=== PATIENT | male | born 1965 | race African-American/Black ===

== ENCOUNTER 2018-08-23 04:18 | Emergency (ER) | payer OTHER ==
[~2018-08-23] VITALS: Ht 162.6 cm; Wt 104.3 kg
[~2018-08-23 04:18] MED LIST: AMLODIPINE BESYL5 MG PO; LISINOPRIL20 MG; TESSALON PERLE100 MG PO
[2018-08-23] MEDS ORDERED: NORCO 5-325 TA1 EACH PO (04:38)
[2018-08-23 04:48] VITALS: BP 162/107
== END 2018-08-23 04:50 | disposition home or self-care (01) ==
LOC: ER 04:18
DX: M54.6 Pain in thoracic spine (principal); I10 Essential (primary) hypertension

== ENCOUNTER 2020-01-29 12:32 | Inpatient (IN) | payer OTHER ==
[~2020-01-29] VITALS: Ht 162.6 cm; Wt 93.8 kg
[~2020-01-29 12:32] MED LIST changes: +NORCO 5-325 TA1 EACH PO
[2020-01-29 12:40] VITALS: BP 158/106
[2020-01-29] MEDS ORDERED: LEXAPRO 10 MG T10 M1 PO (12:52)
[2020-01-29 13:21] LABS: ABSOLUTE NEUTROPHILS 2.8 thou/uL (1.4-8.2); BASOPHILS 0.8 % (0.0-2.0); EOSINOPHILS 1.9 % (0.0-3.0); HEMATOCRIT 45.6 % (42.0-52.0); HEMOGLOBIN 15.6 gm/dL (14.0-18.0); LYMPHOCYTES 30.6 % (24.0-44.0); MCH 31.7 pg (26.0-34.0); MCHC 34.1 g/dL (28.0-37.0); MCV 92.9 fL (80.0-100.0); PLATELET COUNT 230 thou/uL (150-400); POLYS 55.7 % (36.0-66.0); RBC 4.91 mil/uL (4.50-6.00); RDW 14.4 % (10.5-14.5); WBC 5.1 thou/uL (4.0-11.0)
[2020-01-29 13:29] LABS: ANION GAP 5 mmol/L (7-16); BUN 12 mg/dL (7-18); CALCIUM 7.7 mg/dL (8.5-10.1); CHLORIDE 107 mmol/L (98-107); CO2 32 mmol/L (21-32); CREATININE 1.3 mg/dL (0.7-1.3); GLUCOSE 82 mg/dL (74-106); POTASSIUM 3.5 mmol/L (3.5-5.1); SODIUM 144 mmol/L (136-145)
[2020-01-29 13:36] LABS: ALBUMIN 3.2 g/dL (3.4-5.0); SALICYLATE < 2.8 mg/dL (2.8-20.0); SGOT 28 U/L (15-37); SGPT 28 U/L (30-65); TOTAL BILIRUBIN 0.3 mg/dL (<0.1-1.0); TOTAL PROTEIN 6.7 g/dL (6.4-8.2)
[2020-01-29 13:49] LABS: URINE BILIRUBIN NEGATIVE (Negative); URINE BLOOD NEGATIVE (Negative); URINE CLARITY CLEAR; URINE COLOR YELLOW; URINE GLUCOSE-RANDOM* NEGATIVE (Negative); URINE KETONES TRACE (Negative); URINE LEUKOCYTES-REFLEX NEGATIVE (Negative); URINE NITRITE-REFLEX NEGATIVE (Negative); URINE PROTEIN (DIPSTICK) TRACE (Negative)
[2020-01-29 14:03] LABS: AMP/METHAMP Negative (Negative); BARBITURATES Negative (Negative); BENZODIAZEPINES POSITIVE (Negative); COCAINE POSITIVE (Negative); METHADONE Negative (Negative); OPIATES Negative (Negative); PCP Negative (Negative)
--- NOTE | 2020-01-29 14:51 | NUR ---
FIANCE - CRYSTAL : [phone]
[2020-01-29 15:08] VITALS: BP 150/103
[2020-01-29 15:35] VITALS: BP 158/102
[2020-01-29 15:51] VITALS: BP 158/102
--- NOTE | 2020-01-29 16:50 | NUR ---
1600 NEW ADMIT FROM ER DUE TO OVERDOSING ON BENZODIAZIPINES AND COCAINE. PATIENT TEARFUL WHILE TALKING WITH ME ABOUT WHY HE TRIED TO KILL HIMSELF. PATIENT STATES HE HAS LOST HIS STEP SON 7 MONTHS AGO, GRANDAUGHTER SEVERAL MONTHS AGO; OTHER FAMILY MEMBERS IN THE PAST YEAR. PATIENT STAES WHEN HE TOOK THE PILLS HIS DAUGHTER TOLD HIM THAT SHE CANNOT LOSE HIM AFTER LOSING HER BROTHER. PATIENT STATES HIS SONS MOTHER STARTED DATING RIGHT AFTER STEP SON . HE FELT THAT THAT WAS WRONG AND HE FELT HE DID NOT HAVE SUPPORT WHILE GREIVING. 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 HIS LAB WORK WAS POSITIVE FOE BENZO'S AND COCAINE. PATIENT IS VERY RECEPTIVE FOR BEING HERE. HE WANTS HELP WITH DEALING WITH ANXIETY AND DEPRESSION, COOPERATIVE VERY PLEASANT.
[2020-01-29 20:35] VITALS: BP 154/99
--- NOTE | 2020-01-30 05:34 | NUR ---
Assumed care of pt @ 1900. Pt calm et cooperative with pleasant demeanor. Took medications whole without difficulty. Ambulates the halls ad scot with steady gait. Physician plced pt on CIWA protocol so assessment made X1 hr for 2X et then every 4 hours after. Pt has not scored on CIWA assessment et pt denies any symptoms at this time. VSWNL. Health assessment with no abnormalities noted at present time. Denies SI/ HI. Currently resting in bed with eyes closed. Will continue to monitor per protocol.
[2020-01-30 07:15] VITALS: BP 155/98
--- NOTE | 2020-01-30 08:48 | EKG ---
[facility] [place] [address] ELECTROCARDIOGRAM REPORT Name: KAREN [facility]IMI [facility] [id number] Admission: 01/29/20 Attend Phys: Darrick Medina DO Discharge: Date of : 63 Report #: [id number] THIS REPORT FOR: cc: [facility] - Clinic physician unknown [facility] - Clinic physician unknown Jeremy Anthony MD [facility] THIS REPORT FOR: //name// [facility] ED Test Date: 2020-01-29 Test Time: 13:04:07 Pat Name: KAREN KARIMI Department: Room: [facility] Gender: M 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
--- NOTE | 2020-01-30 16:32 | NUR ---
NILSA spoke with Pt's girfriend, Carmen Dhaliwal, at Pt's request. Ms. Dhaliwal inquired about Pt being discharged. NILSA informed that Pt was not ready for discharge at this point due to suicide attempt and current heightened anxiety Pt is displaying. NILSA also informed that if Pt requested to leave the hospital would request a 96 hour hold due to seriousness of issues that brought Pt in. NILSA explained the inpt program to Ms. Dhaliwal. Ms. Dhaliwal was concerned about Pt isolating in his room and Pt being scared to be on the unit. NILSA assured Ms. Dhaliwal of Pt's safety and encouraged her to encourage the Pt to come out of his room and participate in the group psycho therapy and rec therapy groups. Ms. Dhaliwal also stated that Pt has always been an "on the move" and a "hard time sitting steal" type of person and asked about medication. NILSA informed that Pt has seen psychiatry and will continue to see the doctor through out his stay here. Also that any medication started will be discussed with the Pt. Ms. Dhaliwal had no further question or concerns.
[2020-01-30 16:54] VITALS: BP 155/98
--- NOTE | 2020-01-30 17:11 | NUR ---
ASSUMED CARE AT 0700 THIS MORNING. THIS PT. IS ON CIRWA Q 4 TODAY. NO S/S NOTED. HE DENIES SWEATS, SHAKINESS, LIGHT DIFFERENTIAL, OR ANYTHING. STATED HE WILL D/C THIS. PT. HAS BEEN IN HIS ROOM MUCH OF THE DAY, WHEN NOT EATING MEALS, LYING IN BED. HE HAS BEEN PLEASANT WITH THIS RN. HE TOOK HIS MEDICATIONS WITHOUT PROBLEMS. DENIES SI/HI, AVH
[2020-01-30 19:25] VITALS: BP 149/88
--- NOTE | 2020-01-30 21:00 | NUR ---
Assumed care of patient at change of shift. He was laying in bed when his assessment was done. He was encouraged to increase his activity but he states that he is scared of some of the other patients and just wants to be in his room and left alone by other patients. He states that he is very upset at the fact that another patient wanders into his room and turns on the light. He states that this scares him very much. Emotional support was given and he was thankful for it. We talked at length about his using of drugs and his attempted OD. He denies SI/HI/AH/VH. He states that he knows that it was stupid and that he only does drugs "once in a while". He is alert and oriented x 4 with flat affect. He states that he will be doing outpatient therapy at [facility] 5 days a week after he discharges to home or [place]. His physical assessment is WNL per nursing assessment. He took his meds with water. No choking or coughing was noted after swallowing.
[2020-01-31 04:26] VITALS: BP 149/88
[2020-01-31 07:38] VITALS: BP 163/96
[2020-01-31 11:00] VITALS: BP 163/96
[2020-01-31 11:26] VITALS: BP 163/96
--- NOTE | 2020-01-31 11:31 | NUR ---
ASSUMED CARE AT 0700 THIS MORNING. CONTINUES TO BE DEPRESSED, SAD LOOKING, AND TEARFUL AT TIMES. HE ONLY TALKS TO STAFF ON APPROACH ONLY. ATE ON THE UNIT, TOOK HIS MEDICATIONS WITHOUT PROBLEMS NOTED. BETWEEN MEALS HE LAYS IN HIS BED, NOT COMMUNICATING WITH ANYBODY.
[2020-01-31 19:30] VITALS: BP 154/109
--- NOTE | 2020-01-31 22:22 | NUR ---
Assumed care of patient at change of shift. He was ambulating in hallways with a slow and steady gait and returned to his room for assessment. He is alert and oriented x 4. He can state details of his discharge planning. His affect is flat. He was pleasant and cooperative and no behaviors are noted. He emphatically denies SI/HI/AH/VH. He spoke of the deaths of his son and step-son without becoming tearful and acknowledges that grief counseling would be beneficial. He denies pain and no signs or symptoms of pain or distress are noted.
[2020-02-01 00:07] VITALS: BP 154/109
--- NOTE | 2020-02-01 03:28 | NUR ---
Pt.'s blood pressure was retaken with manual cuff at change of shift. BP with manual 182/100. Pt. has been up x 3 to bathroom to void without difficulty.
--- NOTE | 2020-02-01 05:39 | NUR ---
Pt. was up ad scot to bathroom x 3 last night. Pt. would quickly return to bed and cover back up. Gait steady. Pt. reminded not to be hasty at night while getting up to go to the bathroom. He stated that he understood.
[2020-02-01 07:41] VITALS: BP 156/95
--- NOTE | 2020-02-01 10:53 | NUR ---
0700 ASSUMED CARE OF PATIENT, PATIENT SITTING IN DAYROOM AT THAT TIME. PATIENT AMB TO ROOM AND SITS IN ROOM. 0800 PATIENT BACK TO DAYROOM FOR BREAKFAST. MEDICATION TAKEN WHOLE WITHOUT DIFFICULTY. DENIES SI/HI, NO C/O PAIN, PATIENT STATES GOAL FOR TODAY IS TO FOCUS. NO CONCERNS VOICED. DENIES NEEDS.
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
[2020-02-01 19:39] VITALS: BP 170/99
[2020-02-01 21:15] VITALS: BP 154/88
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
--- NOTE | 2020-02-02 06:08 | NUR ---
PATIENT AWOKE AND CAME TO DINING ROOM AROUND 0500. HE ASKED NURSE IF HE COULD GET SOMETHING FOR RIGHT SIDED NECK PAIN. TYLENOL 650 MG WAS GIVEN TO HIM. THIS NURSE USED THERAPEUTIC MASSAGE TO AREA. RIGHT NECK WAS TIGHT AND DID LOOSEN A LITTLE WITH MASSAGE. CHECKED PATIENT'S BP. IT WAS 158/107 WITH MACHINE AND 158/100 MANUALLY. PATIENT DENIES HEADACHE. THIS NURSE CALLED RENAE SAXENA PIPER HELPER AND ASKED IF I COULD GIVE A BP MED EARLY. SHE ORDERED TO GO AHEAD AND GIVE THE AMLODIPINE (NORVASC) 10MG NOW AND WAIT TILL 0900 TO GIVE LISINOPRIL. PT WENT BACK TO BED AND IS SLEEPING NOW.
--- NOTE | 2020-02-02 06:48 | NUR ---
PATIENT IS UP IN DINING ROOM DRINKING COFFEE. HE IS THINKING HE IS GOING HOME TODAY BECAUSE DR BOLTON TOLD HIM HE WOULD BE. I TOLD HIM I SAW DR'S NOTE STATING THAT BUT RENAL MEDICINE SPECIALIST HAS PUT DOWN THAT HE IS TO GO HOME 02/02. RECHECKED BP AND IS 158/96. SYSTOLIC HAS COME DOWN A LITTLE BIT. HE WILL GET LISINOPRIL AT 0900.
[2020-02-02 07:29] VITALS: BP 154/94
[2020-02-02 09:00] VITALS: BP 154/94
--- NOTE | 2020-02-02 09:43 | NUR ---
NILSA and Dr. Leahy met with Pt concerning discharge plan. NILSA completed a safety plan with the Pt and called [facility] to start intake for intensive outpatient program. SW encouraged Pt to talk to his job about the outpt services and the need for time off to attend the program. Pt was in agreement with the plan. Pt requested a letter concerning the dates he was inpt to present to his job. Pt was able to call his family to transport home.
--- NOTE | 2020-02-02 12:07 | NUR ---
0700 ASSUMED CARE OF PATIENT. 0730 PATIENT OUT IN DAYROOM WATCHING TV QUIETLY. 0800 PATIENT EATING BREAKFAST, DENIES NEEDS AT THAT TIME. MEDICATION TAKEN WHOLE WITHOUT DIFFICULTY. 0900 PTIENT DENIES PAIN, DENIES SI/HI, LUNG SOUNDS CLEAR, BS ACTIVE. PATIENTS GOAL FOR THE DAY IS TO GO HOME WITH NO CONCERNS. 1020 DC INSTRUCTIONS GIVEN PATIENT VOICED UNDERSTANDING. BELONGING RETRIEVED FROM SECURITY WHICH INCLUDE DRIVERS LICENSE AND ISURANCE CARD. 1138 PATIENT DC'D, PATIENT AMBULATED TO VEHICLE ACCOMPNAIED BY STAFF WITH BELONGING IN HAND.
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
== END 2020-02-02 11:38 | disposition home or self-care (01) | DRG 885 ==
LOC: ER 12:32 → SBH 14:52 → EROBS 14:52 → SBH 15:08 → ER 15:08 → SBH 15:15
PROVIDERS: Physician Assistant; ADMIT Psychiatry & Neurology Psychiatry
DX: F32.3 Major depressive disorder, single episode, severe with psychotic features (principal); R45.851 Suicidal ideations; I10 Essential (primary) hypertension; F32.9 Major depressive disorder, single episode, unspecified; F14.90 Cocaine use, unspecified, uncomplicated; F68.8 Other specified disorders of adult personality and behavior; E78.5 Hyperlipidemia, unspecified; R63.4 Abnormal weight loss; E66.9 Obesity, unspecified; F10.129 Alcohol abuse with intoxication, unspecified; R45.84 Anhedonia; Z72.89 Other problems related to lifestyle; Z79.891 Long term (current) use of opiate analgesic; Z68.35 Body mass index [BMI] 35.0-35.9, adult; Z79.899 Other long term (current) drug therapy
CPT/HCPCS: 10880

== ENCOUNTER 2020-05-21 05:57 | Inpatient (IN) | payer OTHER ==
[~2020-05-21] VITALS: Ht 165.1 cm; Wt 90.3 kg
[~2020-05-21 05:57] MED LIST changes: +LEXAPRO 10 MG T10 M1 PO
[2020-05-21 06:12] VITALS: BP 123/87
[2020-05-21] MEDS ORDERED: LOVASTATIN 20 M20 MG PO (06:19)
[2020-05-21 07:12] LABS: ABSOLUTE NEUTROPHILS 5.1 thou/uL (1.4-8.2); EOSINOPHILS 0.6 % (0.0-3.0); HEMATOCRIT 47.1 % (42.0-52.0); HEMOGLOBIN 15.9 gm/dL (14.0-18.0); LYMPHOCYTES 16.2 % (24.0-44.0); MCH 31.7 pg (26.0-34.0); MCHC 33.8 g/dL (28.0-37.0); MCV 93.7 fL (80.0-100.0); MONOCYTES 11.1 % (1.0-8.0); PLATELET COUNT 197 thou/uL (150-400); POLYS 71.1 % (36.0-66.0); RBC 5.02 mil/uL (4.50-6.00); RDW 14.3 % (10.5-14.5); WBC 7.2 thou/uL (4.0-11.0)
--- NOTE | 2020-05-21 07:27 | EKG ---
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[facility] 1965 Requested By: Ruby Larios Order Number: [id number] MD: Livan Dubon Measurements Intervals [place] Rate: 100 P: 68 VA: 169 QRS: 79 QRSD: 89 T: 36 QT: 346 QTc: 447 Interpretive Statements Sinus tachycardia Probable left atrial enlargement Poor R-wave progression V1-3 Baseline wander in lead(s) V2 Compared to ECG 01/29/2020 13:04:07 Sinus rhythm no longer present Electronically Signed On 05-21-2020 7:27:34 CDT by Livan Dubon [email or web address] <ELECTRONICALLY SIGNED> By: Livna Dubon MD, FAC 05/21/20 0727 2 2 Livan Dubon MD, [facility] /EPI
[2020-05-21 07:28] LABS: ANION GAP 11 mmol/L (7-16); BUN 61 mg/dL (7-18); CALCIUM 7.8 mg/dL (8.5-10.1); CHLORIDE 96 mmol/L (98-107); CO2 31 mmol/L (21-32); CREATININE 6.3 mg/dL (0.7-1.3); GLUCOSE 95 mg/dL (74-106); SODIUM 138 mmol/L (136-145)
[2020-05-21 07:38] LABS: ALBUMIN 2.9 g/dL (3.4-5.0); DIRECT BILIRUBIN 0.2 mg/dL (<0.1-0.2); LIPASE 442 U/L (73-393); SGOT 16 U/L (15-37); SGPT 18 U/L (30-65); TOTAL BILIRUBIN 0.6 mg/dL (0.2-1.0); TOTAL PROTEIN 6.4 g/dL (6.4-8.2); TROPONIN-I <0.06 ng/mL (<0.06)
[2020-05-21 07:58] LABS: URINE BILIRUBIN NEGATIVE (Negative); URINE BLOOD TRACE (Negative); URINE CLARITY CLEAR; URINE COLOR YELLOW; URINE GLUCOSE-RANDOM* NEGATIVE (Negative); URINE KETONES NEGATIVE (Negative); URINE LEUKOCYTES-REFLEX NEGATIVE (Negative); URINE NITRITE-REFLEX NEGATIVE (Negative); URINE PROTEIN (DIPSTICK) NEGATIVE (Negative); URINE SPECIFIC GRAVITY 1.015 (1.005-1.035); URINE UROBILINOGEN 0.2 E.U./dl (0.2-1.0)
[2020-05-21 08:17] LABS: CALCIUM 7.5 mg/dL (8.5-10.1); POTASSIUM 3.1 mmol/L (3.5-5.1)
[2020-05-21 17:12] VITALS: BP 115/73
[2020-05-21 17:19] VITALS: BP 112/79
[2020-05-21 19:09] VITALS: BP 126/88
--- NOTE | 2020-05-21 19:37 | NUR ---
NEW ADMIT FOR ABD PAIN, HIATAL HERNA, PANCREATITIS, ACUTE RENAL FAILURE. A./OX4, DENINES CHEST PAIN, DENIES SOB. NRS ON TELE. ORDERS ACKNOWLEDGE, ADMISSION AND CONSENTS COMPLETED. TOLERATING CLD. POTENTIAL EGD IN AM. UP AB XENIA IN ROOM. ORIANTED TO ROOM AND CALL SYSTEM. PERSONAL ITEMS IN REACH.
--- NOTE | 2020-05-22 04:08 | NUR ---
ASSUMED PT CARE AT SHIFT CHANGE. PT IS A&OX4. PT IS UP AD XENIA. PT IS ON TELE. PT HAS A LEFT AC FLUIDS RUNNING AT 125ML/HR. PT IS ABLE TO VOICE NEEDS. HE IS CONCERNED ABOUT HIS DIET. PT COMPLAINS OF A PAIN AT 7 ABDOMINALY. FENTANYL WAS ADMINISTERED.PT HAS BEEN ASLEEP OFF AND ON IN THE ROOM. WILL CONTINUE TO MONITOR.
[2020-05-22 05:32] LABS: HEMATOCRIT 43.2 % (42.0-52.0); HEMOGLOBIN 14.4 gm/dL (14.0-18.0); MCH 31.5 pg (26.0-34.0); MCHC 33.3 g/dL (28.0-37.0); MCV 94.6 fL (80.0-100.0); RBC 4.57 mil/uL (4.50-6.00); RDW 14.2 % (10.5-14.5); WBC 6.4 thou/uL (4.0-11.0)
[2020-05-22 05:37] LABS: POTASSIUM 3.8 mmol/L (3.5-5.1)
[2020-05-22 05:47] LABS: CREATININE 4.3 mg/dL (0.7-1.3)
[2020-05-22 07:53] VITALS: BP 147/95
--- NOTE | 2020-05-22 12:39 | NUR ---
Received awake on bed. Due medications given as prescribed, able to swallow meds q/o difficulty. On room air. A+Ox4. On telemetry; SR, no complain of chest pain, crushing sensation and heaviness. On clear liquid diet, tolerating well; no nausea, no vomiting and no abdominal pain noted. On blood sugar monitoring, taken and recorded accordingly. Continent of bowel and bladder, able to go to the toilet independently. With NS at 125cc/hr, infusing well at L AC. Up ad scot. No complain of pain made during assessment. To continue monitoring patient. Pt seen and examined by Dr Robertson, planning to do surgery on pt since one of his scheduled cases got cancelled, pt informed- he said he had 1 cup of broth and 2 cups of juice- Dr Robertson informed, will not do surgery today- may have regular diet- orders made, pt informed. Visited by relative today. Pt able to sit out on chair and walk around the room.
[2020-05-22 15:41] VITALS: BP 157/98
[2020-05-22 21:57] VITALS: BP 136/86
[2020-05-23 06:22] LABS: ALBUMIN 2.5 g/dL (3.4-5.0); PHOSPHORUS 1.8 mg/dL (2.5-4.9); POTASSIUM 3.5 mmol/L (3.5-5.1)
[2020-05-23 06:24] LABS: CREATININE 2.6 mg/dL (0.7-1.3)
[2020-05-23 07:20] VITALS: BP 155/109
[2020-05-23 09:50] VITALS: BP 156/110
[2020-05-23 13:24] VITALS: BP 147/97
--- NOTE | 2020-05-23 16:24 | NUR ---
PT A&OX4, VSS, GENERALIZED PAIN THIS A.M. PATIENT STATES HE WANTS TO GO HOME TODAY. DOCTOR IN TO SPEAK WITH PATIENT. PATIENTS KIDNEY FUNCTION BEING MONITORED WILL STAY ANOTHER NIGHT. PATIENT DENEIS N/V/D. IV FLUIDS CONTINUE TO RUN. NO SIGNS OF DISTRESS. WILL CONTINUE TO MONITOR.
[2020-05-23 16:26] VITALS: BP 152/76
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
== END 2020-05-23 22:55 | disposition left against medical advice (07) | DRG 391 ==
LOC: ER 05:57 → EROBS 10:01 → 4W 10:01
PROVIDERS: Emergency Medicine; Internal Medicine Nephrology; ADMIT Internal Medicine; ATTEND Internal Medicine
DX: K29.70 Gastritis, unspecified, without bleeding (principal); K85.90 Acute pancreatitis without necrosis or infection, unspecified; N17.9 Acute kidney failure, unspecified; F41.9 Anxiety disorder, unspecified; F32.9 Major depressive disorder, single episode, unspecified; I10 Essential (primary) hypertension; E87.6 Hypokalemia; E78.5 Hyperlipidemia, unspecified; K21.9 Gastro-esophageal reflux disease without esophagitis; K43.2 Incisional hernia without obstruction or gangrene; E86.0 Dehydration; Z20.828 Contact with and (suspected) exposure to other viral communicable diseases; Z79.899 Other long term (current) drug therapy
CPT/HCPCS: 10040; 10045

== ENCOUNTER 2021-03-18 11:07 | Inpatient (IN) | payer OTHER ==
[~2021-03-18] VITALS: Ht 165.1 cm; Wt 99.2 kg
--- NOTE | ~2021-03-18 | P ---
[facility] [place] [address] PROCEDURE REPORT Name: KAREN KARIMI Room #: 360-[facility].#: [id number] Admission: 03/18/21 Attend Phys: Gennaro James MD Discharge: 03/19/21 Date of : 63 Report #: [id number] THIS REPORT FOR: cc: [facility] - Clinic physician unknown [facility] - Clinic physician unknown Konrad Flores MD ~ cc: Gennaro James MD DATE OF SERVICE: 03/19/2021 PROCEDURE PERFORMED: Colonoscopy. HISTORY OF PRESENT ILLNESS: The patient is a 55-year-old male with recent bright red blood per rectum, started on Sunday last week. Denies any abdominal pain. Last colonoscopy was approximately 3-4 years ago, reportedly negative. CT scan of the abdomen and pelvis showing a possible mild rectal wall thickening, which may be seen with proctitis, although lack of distention is possible; mild diverticulosis without evidence of diverticulitis. The patient's hemoglobin is stable at 15.4 on admission, 14.5 today. DESCRIPTION OF PROCEDURE: The risks and benefits of the procedure were explained to the patient. Those risks including, but not limited to bleeding, perforation and the risk of sedation. He understood these risks and gave informed consent. Sedation was given using propofol per anesthesia. Next, a digital rectal exam was initially performed, which was normal. Next, using a standard Olympus colonoscope, the scope was placed in the patient's anus and advanced under direct vision to the cecum. The overall prep was good. The cecum and ileocecal valve were normal in appearance. Terminal ileum was intubated and normal in appearance. Ascending, transverse and descending colon were normal. A few small scattered diverticula were noted in the sigmoid colon. No evidence of inflammation. No evidence of bleeding. The rectal mucosa was normal. On retroflexion, small nonbleeding internal hemorrhoids were noted. Close examination of the anal canal showed small internal hemorrhoids. No evidence of anal fissure. No evidence of bleeding. There was no evidence of colitis throughout the exam today. The scope was then withdrawn and the procedure terminated. The patient tolerated the procedure well. IMPRESSION: 1. Sigmoid diverticulosis. 2. Internal hemorrhoids. 3. Otherwise, normal colonoscopy. RECOMMENDATIONS: Suspect recent bleeding was secondary to internal hemorrhoids. No stigmata or evidence of bleeding at this time, although the patient could have had a diverticular bleed with what he describes more likely scenario would be from hemorrhoids. We would recommend observing at this point using [address] [address] PROCEDURE REPORT Name: KARIMIKARENSHANTELLE IZAGUIRRE Room #: 360-P [facility] IN M.R.#: [id number] Admission: 03/18/21 Attend Phys: Gennaro James MD Discharge: 03/19/21 Date of : 63 Report #: [id number] on a p.r.n. basis. Thank you for allowing me to participate in his care. By: [id number] Konrad Flores MD /bharath
[~2021-03-18 11:07] MED LIST changes: -LISINOPRIL20 MG; +LISINOPRIL20 MG PO; +LOVASTATIN 20 M20 MG PO
[2021-03-18 11:10] VITALS: BP 116/76
[2021-03-18] MEDS ORDERED: LOVASTATIN 20 M20 MG PO (11:12)
[2021-03-18] MEDS ORDERED: TRAZODONE HCL100 MG PO (11:13)
[2021-03-18 11:49] LABS: ABSOLUTE NEUTROPHILS 4.2 thou/uL (1.4-8.2); BASOPHILS 0.9 % (0.0-2.0); EOSINOPHILS 1.2 % (0.0-3.0); HEMATOCRIT 44.6 % (42.0-52.0); HEMOGLOBIN 15.4 gm/dL (14.0-18.0); LYMPHOCYTES 31.4 % (24.0-44.0); MCH 31.4 pg (26.0-34.0); MCHC 34.5 g/dL (28.0-37.0); MCV 90.8 fL (80.0-100.0); PLATELET COUNT 231 thou/uL (150-400); POLYS 55.5 % (36.0-66.0); RBC 4.91 mil/uL (4.50-6.00); RDW 14.2 % (10.5-14.5); WBC 7.6 thou/uL (4.0-11.0)
[2021-03-18 11:57] LABS: CALCIUM 8.2 mg/dL (8.5-10.1); CREATININE 1.3 mg/dL (0.7-1.3); POTASSIUM 3.7 mmol/L (3.5-5.1)
[2021-03-18 12:03] LABS: TOTAL BILIRUBIN 0.3 mg/dL (0.2-1.0)
[2021-03-18 12:25] LABS: APTT 23.2 Seconds (24.5-32.8); INR 0.94; PROTIME 10.3 Seconds (10.5-12.1)
[2021-03-18 14:53] VITALS: BP 135/85
[2021-03-18 15:25] VITALS: BP 110/74
[2021-03-18 15:47] VITALS: BP 117/74
--- NOTE | 2021-03-18 18:00 | NUR ---
PT ADMITTED TO RM 360 AROUND 1530 TODAY. A/O X 4. UP TO RESTROOM X 4 WITH BM ONCE ARRIVED TO UNIT. C/O BRIGHT RED STOOLS UNTIL 3RD STOOL STATES IS NORMAL IN COLOR. PT DENIES ANY PAIN. ASSESSMENT PER CHART. PLAN FOR COLONOSCOPY TOMORORROW MORNING WITH DR WILLOUGHBY. CONSENT SIGNED AND ON CHART. BOWEL PREP STARTED AROUND 1700. PT TOLERATING WELL. NSR ON MONITOR, VSS. WILL CONT TO MONITOR REST OF SHIFT AND FOLLOW POC.
[2021-03-18 20:08] VITALS: BP 124/78
[2021-03-19 05:44] LABS: ABSOLUTE NEUTROPHILS 3.3 thou/uL (1.4-8.2); BASOPHILS 0.5 % (0.0-2.0); EOSINOPHILS 1.7 % (0.0-3.0); HEMATOCRIT 43.1 % (42.0-52.0); HEMOGLOBIN 14.5 gm/dL (14.0-18.0); LYMPHOCYTES 35.9 % (24.0-44.0); MCH 31.6 pg (26.0-34.0); MCHC 33.7 g/dL (28.0-37.0); MCV 93.8 fL (80.0-100.0); MONOCYTES 8.6 % (1.0-8.0); PLATELET COUNT 198 thou/uL (150-400); POLYS 53.3 % (36.0-66.0); RDW 14.4 % (10.5-14.5); WBC 6.2 thou/uL (4.0-11.0)
[2021-03-19 05:47] LABS: CALCIUM 7.5 mg/dL (8.5-10.1); CREATININE 1.1 mg/dL (0.7-1.3); MAGNESIUM 1.7 mg/dL (1.8-2.4); POTASSIUM 3.7 mmol/L (3.5-5.1)
[2021-03-19 08:00] VITALS: BP 128/81
[2021-03-19] MEDS ORDERED: MIRALAX17 GM PO (12:34)
[2021-03-19] MEDS ORDERED: PEPCID20 MG PO (12:35)
--- NOTE | 2021-03-19 12:41 | NUR ---
Assessment completed w/ pt edison Morales [phone], pt was not present in room. Pt lives w/ edison Morales in a 1 lvl apt home w/ 2 full flights of stairs to apt home. ADLs: Indpendent DME: NONE No Hx of HH/SNF/DIALYSIS/LTACH/ACUTE REHAB COVID VACCIONE: [facility] a few months ago per Crystal SOCIAL BARRIERS: Substance/alcohol/mental health concerns Transportation: Family to provide This SW provided pt's edison Morales w/ additonal resources and community resource guide for said social barriers.
[2021-03-19 12:49] VITALS: BP 126/87
[2021-03-19] MEDS ORDERED: ANALPRAM HC 2.530 GM RECTAL (13:40)
[2021-03-19 13:53] VITALS: BP 126/87
--- NOTE | 2021-03-19 14:27 | NUR ---
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
== END 2021-03-19 14:23 | disposition home or self-care (01) | DRG 379 ==
LOC: ER 11:07 → EROBS 13:44 → 3W 15:40
PROVIDERS: Emergency Medicine; Nurse Practitioner; ADMIT Hospitalist; ATTEND Hospitalist
PROC: 0DJD8ZZ Inspection of Lower Intestinal Tract, Via Natural or Artificial Opening Endoscopic (ICD-10-PCS; principal; 2021-03-19)
DX: K57.31 Diverticulosis of large intestine without perforation or abscess with bleeding (principal); K62.5 Hemorrhage of anus and rectum; K64.8 Other hemorrhoids; K62.89 Other specified diseases of anus and rectum; I10 Essential (primary) hypertension; F41.9 Anxiety disorder, unspecified; F32.9 Major depressive disorder, single episode, unspecified; E78.5 Hyperlipidemia, unspecified; F10.11 Alcohol abuse, in remission; N40.0 Benign prostatic hyperplasia without lower urinary tract symptoms; Z79.899 Other long term (current) drug therapy
CPT/HCPCS: 10879; 70005

== ENCOUNTER 2021-04-25 09:35 | Emergency (ER) | payer OTHER ==
[~2021-04-25] VITALS: Ht 165.1 cm; Wt 96.2 kg
[~2021-04-25 09:35] MED LIST changes: +ANALPRAM HC 2.530 GM RECTAL; +MIRALAX17 GM PO; +PEPCID20 MG PO; +TRAZODONE HCL100 MG PO
[2021-04-25 09:48] VITALS: BP 114/60
== END 2021-04-25 11:30 | disposition home or self-care (01) ==
LOC: ER 09:35
PROVIDERS: Emergency Medicine
DX: U07.1 COVID-19 (principal); R06.02 Shortness of breath; R05 Cough; I10 Essential (primary) hypertension; F41.9 Anxiety disorder, unspecified; F32.9 Major depressive disorder, single episode, unspecified; Z79.899 Other long term (current) drug therapy

== ENCOUNTER 2021-04-28 13:01 | Inpatient (IN) | payer OTHER ==
[~2021-04-28] VITALS: Ht 165.1 cm; Wt 94.8 kg
--- NOTE | ~2021-04-28 | EMS ---
[place] [id number] EMS Patient Care Report Name: KAREN KARIMI Room #: 170-1 ADM IN M.R.#: [id number] Admission: 04/28/21 Attend Phys: Gennaro James MD Discharge: Date of : 63 Report #: [id number] THIS REPORT FOR: //name// Report Transmitted: 04/28/2021 13:20 EMS Care Summary [place], [place] Incident [id number] @ 04/28/2021 12:31 Incident Location [address] [place] [address] Patient KAREN KARIMI Male, 55 Years 1965 Patient Address [address] [place] [address] Patient History Hypertension (HTN), Patient Allergies No known allergies, Patient Medications None Reported, Chief Complaint covid Disposition Transported No Lights/[place] Dispatch Reason Breathing Problem Transported To [facility] Narrative pt was shouting for ems from upstairs patio. ems contacted pt. pt a&ox4 gcs 15 and did not present in apparent distress. pt stated "i got bad symptoms". pt was standing to his neighbor and were both not wearing a mask. ems asked symptoms of what. pt stated "i took the test". ems asked what test/ [place] [address] EMS Patient Care Report Name: KAREN KARIMI Room #: 170-1 ADM IN [facility]#: [id number] Admission: 04/28/21 Attend Phys: Gennaro James MD Discharge: Date of : 63 Report #: [id number] "covid test. ems had to ask pts results. pt then informed ems he is positive x4 days. pt complained of body aches x 4 days and fatigue. ems gave pt a mask because he was not wearing one. pt requested to be transported to [facility]. ems told pt they have to don covid ppe then return to pt. ems advised pt that pt needs to alert crews that he is positive and should be wearing a mask. ems donned face shield and gown. pt was walked to ambulance. pt was transferred onto ems cot and was secured in a semi fowlers position without incident. pt was transported non emergent. ems advised pt that he is going to be in contact with his others, he needs to alert all people he is covid positive and should wear a mask. transport was uneventful and pt rested on ems cot. pt care was transferred to appropriate staff and ems goes back in service. Initial Vitals @12:43P: 110,R: 20,BP: 156/74,Pain: 2/10,GCS: 15,SpO2: 97,Revised Trauma: 12, @12:50P: 104,R: 20,BP: 152/72,GCS: 15,SpO2: 97,Revised Trauma: 12, Assessments @12:38MENTAL:No Abnormalities,SKIN:No Abnormalities,HEENT:Head/Face: No Abnormalities,Eyes: No Abnormalities,Neck/Airway: No Abnormalities,LUNG SOUNDS:General: No Abnormalities,Left Upper: No Abnormalities,Right Upper: No Abnormalities,Left Lower: No Abnormalities,Right Lower: No Abnormalities,ABDOMEN:General: No Abnormalities,Left Upper: No Abnormalities,Right Upper: No Abnormalities,Left Lower: No Abnormalities,Right Lower: No Abnormalities,PELVIS//GI:No Abnormalities,EXTREMITIES:Left Arm: No Abnormalities,Right Arm: No Abnormalities,Left Leg: No Abnormalities,Right Leg: No Abnormalities,PULSE:NEURO:No Abnormalities,@12:48MENTAL:No Abnormalities,SKIN:No Abnormalities,HEENT:Head/Face: No Abnormalities,Eyes: No Abnormalities,Neck/Airway: No Abnormalities,LUNG SOUNDS:General: No Abnormalities,Left Upper: No Abnormalities,Right Upper: No Abnormalities,Left Lower: No Abnormalities,Right Lower: No Abnormalities,ABDOMEN:General: No Abnormalities,Left Upper: No Abnormalities,Right Upper: No Abnormalities,Left Lower: No Abnormalities,Right Lower: No Abnormalities,PELVIS//GI:No Abnormalities,EXTREMITIES:Left Arm: No Abnormalities,Right Arm: No Abnormalities,Left Leg: No Abnormalities,Right Leg: No Abnormalities,PULSE:NEURO:No Abnormalities, Impression Generalized Weakness Procedures @12:38ALS AssessmentResponse: UnchangedSucceeded Timeline 12:30,Call Received 12:30,Dispatch Notified 12:31,Dispatched [address] [address] EMS Patient Care Report Name: KAREN KARIMI Room #: 170-1 ADM IN M.R.#: [id number] Admission: 04/28/21 Attend Phys: Gennaro James MD Discharge: Date of : 63 Report #: [id number] 12:32,En Route 12:37,On Scene 12:38,At Patient 12:38,ALS Assessment,Response: UnchangedSucceeded, 12:43,BP: 156/74 M,PULSE: 110,RR: 20 R,SPO2: 97 Ox,ETCO2: ,BG: ,PAIN: 2,GCS: 15, 12:45,Depart Scene 12:50,BP: 152/72 M,PULSE: 104,RR: 20 R,SPO2: 97 Ox,ETCO2: ,BG: ,PAIN: ,GCS: 15, 12:54,At Destination 13:10,Call Closed Disclaimer v1.1 Copyright 2020 [employer] This EMS Care Summary contains data elements from the applicable legal record (which may be displayed differently). It is designed to provide pertinent information for the following purposes: continuity of care, clinical quality, and state data reporting. The complete legal record is available to ED staff and administrators of the receiving hospital in ES's Patient Tracker. All data is provided "as is."
[2021-04-28 13:02] VITALS: BP 147/121
[2021-04-28 13:36] LABS: CREATININE 5.5 mg/dL (0.7-1.3); POTASSIUM 3.7 mmol/L (3.5-5.1)
[2021-04-28 13:43] LABS: ALBUMIN 3.2 g/dL (3.4-5.0); MAGNESIUM 2.5 mg/dL (1.8-2.4); TOTAL BILIRUBIN 0.4 mg/dL (0.2-1.0); TOTAL PROTEIN 7.8 g/dL (6.4-8.2)
[2021-04-28 14:52] LABS: ABSOLUTE NEUTROPHILS 5.5 thou/uL (1.4-8.2); BASOPHILS 0.5 % (0.0-2.0); HEMOGLOBIN 17.3 gm/dL (14.0-18.0); LYMPHOCYTES 16.3 % (24.0-44.0); MCH 31.3 pg (26.0-34.0); MCHC 33.9 g/dL (28.0-37.0); MCV 92.2 fL (80.0-100.0); MONOCYTES 11.7 % (1.0-8.0); PLATELET COUNT 231 thou/uL (150-400); POLYS 71.5 % (36.0-66.0); RBC 5.53 mil/uL (4.50-6.00); RDW 13.4 % (10.5-14.5); WBC 7.7 thou/uL (4.0-11.0)
[2021-04-28 14:59] VITALS: BP 109/63; BP 93/62
--- NOTE | 2021-04-28 16:57 | NUR ---
55-year-old male recently diagnosed with Covid on 04-25-21 and vaccinated with [employer] in the spring presents to the ED on 04-28-21 with SOA, myalgias and muscle cramps. The patient has a past medical history of HTN, Anxiety and Depression. CXR: Vague density peripherally in the left lung with subtle infiltrate difficult to exclude. Currently on RA and sats between 95-100%. Noted BUN at 43, Create at 5.5, SGOT of 90, Magnesium of 2.5 Alkaline Phosphatase 36, Creatine Kinase 367, Albumin 3.2, Procalcitonin of 1.21 and SGPT of 71. The patient has been admitted with positive COVID and EVELINE. Patient last discharged from seen and discharged from the hospital on February 17 2021 with Case Management services on / At that time noted that patient's fianc Crystal at [phone] and remains as the point of contact. Patient lives with fianc in a 1 level apartment home with 2 flights of stairs to the actual apartment. Patient has been independent and has required not DME or HH in the past. Patient reports being vaccinated with [employer] and [employer] in mid to late spring. Anticipate as plan of care with medical team develops CM will follow with anticipated return to home setting or with rehab services once need is determined by therapy evaluations. CM will continue to follow.
[2021-04-28 20:00] VITALS: BP 89/54
[2021-04-28 23:37] VITALS: BP 91/47
[2021-04-29] VITALS (7 sets, daily range): BP systolic 86–119; BP diastolic 35–78
--- NOTE | 2021-04-29 05:12 | NUR ---
PT REMAIN ALERT AND ORIENT TIMES THREE, FORGETFUL AT TIMES. DENIES PAIN. FREQUENT TRIPS TO BSC WITH DIARRHEA, FMS IN PLACE. BP LOW, IVF INFUSING AT 100ML/HR. SR PER MONITOR. READY TO BE TRANSFERRED TO A INPT BED. WILL CONTINUE TO MONITOR.
--- NOTE | 2021-04-29 07:08 | EKG ---
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
[2021-04-29 11:21] LABS: ABSOLUTE NEUTROPHILS 3.5 thou/uL (1.4-8.2); BASOPHILS 0.3 % (0.0-2.0); EOSINOPHILS 0.2 % (0.0-3.0); HEMATOCRIT 43.1 % (42.0-52.0); HEMOGLOBIN 14.7 gm/dL (14.0-18.0); MCH 31.3 pg (26.0-34.0); MCHC 34.2 g/dL (28.0-37.0); MCV 91.6 fL (80.0-100.0); PLATELET COUNT 171 thou/uL (150-400); POLYS 75.5 % (36.0-66.0); RDW 13.5 % (10.5-14.5); WBC 4.6 thou/uL (4.0-11.0)
[2021-04-29 11:37] LABS: CALCIUM 7.9 mg/dL (8.5-10.1); CREATININE 2.5 mg/dL (0.7-1.3); POTASSIUM 3.6 mmol/L (3.5-5.1)
[2021-04-29 11:42] LABS: ALBUMIN 2.6 g/dL (3.4-5.0); CALCIUM 7.5 mg/dL (8.5-10.1); MAGNESIUM 2.1 mg/dL (1.8-2.4); PHOSPHORUS 3.1 mg/dL (2.6-4.7); POTASSIUM 3.8 mmol/L (3.5-5.1)
[2021-04-29 11:43] LABS: CREATININE 2.5 mg/dL (0.7-1.3)
--- NOTE | 2021-04-29 16:33 | NUR ---
ASSUMED CARE AT 0700. PT A/O X 4, CALM AND PLESANT TODAY. DENIES PAIN THROUGHOUT SHIFT. USING URINAL AT BEDSIDE. FMS IN PLACE UNTIL 1600. STOOL THICKENING AND SLOWING, PT REQUEST IT TO BE TAKEN OUT. UP TO BSC FOR BM WITH SBA. STEADY ON HIS FEET. PT SOB WITH EXERTION BUT O2 SAT REMAINS IN MID 90'S ON RA. ASSESSMENTS PER CHART. PT MOVING FROM ER BOARDING ROOM 14 TO 3W ROOM 358. REPORT GIVEN TO JANY JACKSON ON 3W.
--- NOTE | 2021-04-29 18:40 | NUR ---
PATIENT ADMIT TO UNIT AT 1700. A/O X4. ON RA. NO SOB NOTED. DENIES APIN. WILL KEEP MONITOR.
--- NOTE | 2021-04-29 22:51 | NUR ---
PT RESTING IN BED. LUNGS DIMINISHED. LARGE ABD. IVF INTACT. PROVIDED INFORMATION ON NEW MEDICATION. PT STATED HIS FIANCE IS HOME WITH COVID WITH NO TREATMENT BUT IS REFUSING TO GET VACCINATED. PT ENCOURAGED TO TELL HIS FIANCE TO CALL HER PCP AND ASK FOR TREATMENT. PT USING URINAL CALLS FOR ASSISTANCE NEEDED.
[2021-04-30 00:16] VITALS: BP 129/82
[2021-04-30 04:53] VITALS: BP 94/61
[2021-04-30 05:14] LABS: ABSOLUTE NEUTROPHILS 2.7 thou/uL (1.4-8.2); BASOPHILS 0.2 % (0.0-2.0); HEMATOCRIT 41.6 % (42.0-52.0); HEMOGLOBIN 14.2 gm/dL (14.0-18.0); LYMPHOCYTES 20.9 % (24.0-44.0); MCH 31.2 pg (26.0-34.0); MCHC 34.1 g/dL (28.0-37.0); MCV 91.5 fL (80.0-100.0); MONOCYTES 13.1 % (1.0-8.0); PLATELET COUNT 172 thou/uL (150-400); POLYS 65.8 % (36.0-66.0); RBC 4.55 mil/uL (4.50-6.00); RDW 13.5 % (10.5-14.5); WBC 4.2 thou/uL (4.0-11.0)
[2021-04-30 05:29] LABS: INR 0.94; PROTIME 10.3 Seconds (10.5-12.1)
[2021-04-30 05:38] LABS: ALBUMIN 2.3 g/dL (3.4-5.0); CALCIUM 7.6 mg/dL (8.5-10.1); POTASSIUM 3.9 mmol/L (3.5-5.1); TOTAL BILIRUBIN 0.3 mg/dL (0.2-1.0); TOTAL PROTEIN 6.5 g/dL (6.4-8.2)
[2021-04-30 05:42] LABS: CREATININE 1.5 mg/dL (0.7-1.3)
[2021-04-30 07:06] VITALS: BP 99/64
[2021-04-30 11:40] VITALS: BP 99/64
--- NOTE | 2021-04-30 11:59 | NUR ---
ASSUMED PATIENT CARE AT 0700. TOLERATED ON RA. PROGRESSSING TOWARDS POC GOALS. DC TO NOW.
[2021-05-02 17:06] LABS: HIV ANTIBODY Non Reactive (Non Reactive)
== END 2021-04-30 12:00 | disposition home or self-care (01) | DRG 177 ==
LOC: ER 13:01 → EROBS 14:19 → 3W 04-29 17:00
PROVIDERS: Nurse Practitioner; Specialist; Student in an Organized Health Care Education/Training Program; ADMIT Hospitalist; ATTEND Hospitalist
DX: U07.1 COVID-19 (principal); J12.82 Pneumonia due to coronavirus disease 2019; N17.0 Acute kidney failure with tubular necrosis; F41.9 Anxiety disorder, unspecified; F32.9 Major depressive disorder, single episode, unspecified; E86.0 Dehydration; E78.5 Hyperlipidemia, unspecified; F10.10 Alcohol abuse, uncomplicated; Y90.9 Presence of alcohol in blood, level not specified; N18.2 Chronic kidney disease, stage 2 (mild); I95.9 Hypotension, unspecified; K52.9 Noninfective gastroenteritis and colitis, unspecified; I12.9 Hypertensive chronic kidney disease with stage 1 through stage 4 chronic kidney disease, or unspecified chronic kidney disease; Z79.899 Other long term (current) drug therapy; Z87.891 Personal history of nicotine dependence
CPT/HCPCS: 10080

== ENCOUNTER 2021-07-19 03:02 | Emergency (ER) | payer OTHER ==
[~2021-07-19] VITALS: Ht 165.1 cm; Wt 95.3 kg
[2021-07-19] MEDS ORDERED: PREDNISONE50 MG PO (04:01)
[2021-07-19] MEDS ORDERED: HYDROCODON-ACE1 EAC7 PO (04:01)
[2021-07-19 04:21] VITALS: BP 141/82
== END 2021-07-19 04:21 | disposition home or self-care (01) ==
LOC: ER 03:02
DX: M25.522 Pain in left elbow (principal); I10 Essential (primary) hypertension; F41.9 Anxiety disorder, unspecified; F32.9 Major depressive disorder, single episode, unspecified; Z86.16 Personal history of COVID-19; Z79.899 Other long term (current) drug therapy

== ENCOUNTER 2021-10-16 02:27 | Emergency (ER) | payer OTHER ==
[~2021-10-16] VITALS: Ht 165.1 cm; Wt 95.3 kg
[~2021-10-16 02:27] MED LIST changes: +HYDROCODON-ACE1 EAC7 PO; +PREDNISONE50 MG PO
[2021-10-16] MEDS ORDERED: NORCO5 PO ×2 (03:12→23:25)
[2021-10-16] MEDS ORDERED: PREDNISONE 20 M20 MG PO ×2 (03:12→23:25)
[2021-10-16 03:19] VITALS: BP 118/73
== END 2021-10-16 05:31 | disposition home or self-care (01) ==
LOC: ER 02:27
DX: M70.22 Olecranon bursitis, left elbow (principal); I10 Essential (primary) hypertension; F41.9 Anxiety disorder, unspecified; F32.9 Major depressive disorder, single episode, unspecified; Z79.899 Other long term (current) drug therapy; Y93.89 Activity, other specified